=== PATIENT | male | born 1960 | race Caucasian/White ===

== ENCOUNTER → 2019-02-20 | Outpatient (CLI) | payer MEDICARE ==
[~2019-02-20] MED LIST: CRS350T PO; ETOD400T PO; HYDR-4226 PO; LEVO125T6 PO; LEVO300T2; NAPR-243 PO; TRM50T PO
--- NOTE | 2019-02-20 09:39 | Diagnostic Imaging Report ---
PROCEDURE: US abdomen complete. TECHNIQUE: Multiple real-time grayscale images were obtained over the abdomen in various projections. INDICATION: Right flank pain. The liver is enlarged at 19.5 cm. The liver shows increased echogenicity consistent with hepatic steatosis. No discrete liver mass is identified. Portal vein and hepatic veins are somewhat obscured. Gallbladder does contain a small amount of sludge but no stones are identified. No wall thickening or biliary duct dilatation is identified. Pancreas is obscured by bowel gas. The spleen is normal in size at 11.2 cm. Aorta and IVC were obscured by bowel gas. Kidneys are without calculi or hydronephrosis. Left kidney does contain at least 2 cysts, largest 3 cm in size. There is no ascites. IMPRESSION: 1. Limited study due to overlying bowel gas. There is hepatomegaly and hepatic steatosis. There may be minimal gallbladder sludge present as well but no cholelithiasis or acute cholecystitis is detected. 2. Left renal cysts. Dictated by: Dictated on workstation # [id number]
== END ==
LOC: RAD 08:03
PROVIDERS: ATTEND Family Medicine
DX: K76.0 Fatty (change of) liver, not elsewhere classified (principal); N28.1 Cyst of kidney, acquired
CPT/HCPCS: 76700

== ENCOUNTER → 2019-03-10 | Outpatient (CLI) | payer MEDICARE ==
[~2019-03-10] MED LIST changes: +CATHETER FLUSH 10 ML SYR IV PRN
--- NOTE | 2019-03-10 16:32 | Diagnostic Imaging Report ---
INDICATION: Right upper quadrant pain. EXAMINATION: Patient was administered 5.4 mCi technetium 99m Choletec intravenously and imaging over the abdomen was performed. At 45 minutes, the patient ingested 8 ounces of Ensure and a gallbladder ejection fraction was calculated. FINDINGS: There is homogeneous uptake of activity throughout the liver. There is prompt excretion of activity into the common duct with normal passage into the small bowel. Activity is seen within the gallbladder as well. Gallbladder ejection fraction is 28%. Normal values are 33% or greater. IMPRESSION: 1. Patent common bile duct and cystic duct. 2. Low gallbladder ejection fraction of 28%. Dictated on workstation # [id number]
== END ==
LOC: CARD 11:43
PROVIDERS: ATTEND Family Medicine
DX: R10.11 Right upper quadrant pain (principal)
CPT/HCPCS: 78227

== ENCOUNTER 2019-03-16 05:29 | Outpatient (CLI) | payer MEDICARE ==
[~2019-03-16] VITALS: Ht 185.4 cm; Wt 145.0 kg
[~2019-03-16 05:29] MED LIST changes: -CATHETER FLUSH 10 ML SYR IV PRN
[2019-03-16] MEDS ORDERED: LEVO125T6 PO (13:17)
[2019-03-17] MEDS ORDERED: HYDR-34 PO (10:27)
== END 2019-03-16 13:27 ==
LOC: PREOP 05:29
PROVIDERS: ATTEND Surgery
DX: Z01.818 Encounter for other preprocedural examination (principal)

== ENCOUNTER 2019-03-17 10:08 | Day surgery (SDC) | payer MEDICARE ==
[2019-03-17] VITALS (14 sets, daily range): BP systolic 98–169; BP diastolic 66–105
[~2019-03-17] VITALS: Ht 185.4 cm; Wt 145.0 kg
--- NOTE | 2019-03-17 10:25 | Progress Note-Pre Operative ---
Pre-Operative Progress Note H&P Reviewed The H&P was reviewed, patient examined and no changes noted. Date Seen by Provider: Mar 17, 2019 Time Seen by Provider: 10:00 Date H&P Reviewed: Mar 17, 2019 Time H&P Reviewed: 10:00 Pre-Operative Diagnosis: symptomatic biliary dyskinesia, hx polyps/screening BRITTNY LIZARRAGA MD Mar 17, 2019 10:25
[2019-03-17] MEDS ORDERED: HYDR-34 PO (10:27)
--- NOTE | 2019-03-17 10:28 | Discharge Inst-Surgical ---
D/C Lap Instructions-ZIA New, Converted, or Re-Newed RX: RX on Chart Follow Up Appt in 2 weeks Activity as tolerated No driving for 24 hours No driving while on pain medications Incentive Spirometry use every 2 hours while awake Regular Diet Symptoms to Report: Fever over 101 degree F, Nausea/Vomiting Infection Signs and Symptoms to report: Increased redness, Foul odor of wound, Increased drainage Bathing instructions: May shower Operative Area Clean/Dry; Keep incision clean/dry If any problems/questions: Contact your physician or go to Emergency Room BRITTNY LIZARRAGA MD Mar 17, 2019 10:28
[2019-03-17] MEDS ORDERED: morphine INJ 10 MG/ML 1ML (SYR OR VIAL) IVP PRN ×2 (10:30)
[2019-03-17] MEDS ORDERED: ONDANSETRON 4 MG/2 ML (SDV) Z0FRAN IVP PRN ×2 (10:30→13:45)
[2019-03-17] MEDS ORDERED: ACETAMINOPHEN 325 MG TABLET PO PRN (10:30)
[2019-03-17] MEDS ORDERED: oxyCODONE/APAP 5/325MG (PERCOCET 5) TABLET PO PRN (10:30)
[2019-03-17] MEDS ORDERED: ceFAZolin 2 GM/50 ML NS 50 ML ONE (10:44)
[2019-03-17] MEDS ORDERED: ceFAZolin 2 GM/50 ML NS 50 ML IV ONE (10:45)
[2019-03-17] MEDS ORDERED: BUP/EPI 0.5% 1:200,000 (SENSORCAINE) 30 ML VIAL ONE (10:49)
[2019-03-17] MEDS ORDERED: CATHETER FLUSH 10 ML SYR IV PRN (11:00)
[2019-03-17] MEDS: LACTATED RINGERS 1,000 ML IV PRN ×2 (11:13→12:09)
[2019-03-17] MEDS ORDERED: fentaNYL INJECTION 100 MCG/2 ML AMP IV ONE (11:15)
[2019-03-17] MEDS ORDERED: fentaNYL INJECTION 100 MCG/2 ML AMP ONE (11:15)
[2019-03-17] MEDS ORDERED: LIDOCAINE PF 2% 5 ML (XYLOCAINE) VIAL ONE (11:15)
[2019-03-17] MEDS ORDERED: ONDANSETRON 4 MG/2 ML (SDV) Z0FRAN ONE (11:15)
[2019-03-17] MEDS ORDERED: MIDAZOLAM 2 MG/2 ML (VERSED) VIAL IV ONE (11:15)
[2019-03-17] MEDS ORDERED: proPOfol 200 MG/20 ML (DIPRIVAN) VIAL IV ONE (11:15)
[2019-03-17] MEDS ORDERED: DEXAMETHASONE 10 MG/ML (DECADRON) 1 ML VIAL ONE (11:15)
[2019-03-17] MEDS ORDERED: ROCURONIUM 10 MG/ML 5 ML SYRINGE IV ONE (11:15)
[2019-03-17] MEDS ORDERED: NEOSTIGMINE 1 MG/ML 5 ML SYRINGE ONE (11:15)
[2019-03-17] MEDS ORDERED: SEVOFLURANE (ULTANE) 15 ML INHAL SOLN ONE (11:15)
[2019-03-17] MEDS ORDERED: GLYCOPYRROLATE 0.2 MG/ML (ROBINUL) 2 ML VIAL ONE (11:15)
[2019-03-17 11:29] LABS: BASOPHILS % (AUTO) 1 % (0-10); EOSINOPHILS # (AUTO) 0.1 10^3/uL (0.0-0.3); EOSINOPHILS % (AUTO) 2 % (0-10); HEMATOCRIT 45 % (40-54); HEMOGLOBIN 14.7 G/DL (13.3-17.7); LYMPHOCYTES # (AUTO) 1.4 X 10^3 (1.0-4.0); LYMPHOCYTES % (AUTO) 22 % (12-44); MEAN CORPUSCULAR HEMOGLOBIN 31 PG (25-34); MEAN CORPUSCULAR HGB CONC 33 G/DL (32-36); MEAN CORPUSCULAR VOLUME 95 FL (80-99); MEAN PLATELET VOLUME 9.7 FL (7.4-10.4); MONOCYTES % (AUTO) 15 % (0-12); NEUTROPHILS # (AUTO) 3.9 X 10^3 (1.8-7.8); NEUTROPHILS % (AUTO) 61 % (42-75); PLATELET COUNT 274 10^3/uL (130-400); RED CELL DISTRIBUTION WIDTH 13.4 % (10.0-14.5); WHITE BLOOD COUNT 6.4 10^3/uL (4.3-11.0)
[2019-03-17] MEDS ORDERED: HYDROmorphone 2 MG/ML VIAL (DILAUDID) ONE ×2 (11:45→13:41)
[2019-03-17] MEDS ORDERED: PHENYLEPHRINE 100 MCG/ML 10 ML (ANESTHESIA) SYR ONE (11:46)
[2019-03-17] MEDS ORDERED: DESFLURANE (SUPRANE) 15 ML INHAL SOLN ONE (11:59)
[2019-03-17] MEDS ORDERED: SUCCINYLCHOLINE INJ 100 MG/5 ML SYR ONE (12:01)
[2019-03-17] MEDS ORDERED: RT-ALBUTEROL SULF 2.5 MG/3 ML PRE-MIX VIAL ONE (13:27)
--- NOTE | 2019-03-17 13:38 | Progress Note-Post Operative ---
Post-Operative Progess Note Surgeon (s)/Workers Compensation Coordinator (s) Surgeon BRITTNY LIZARRAGA MD Workers Compensation Coordinator: wilma stinson [employer] Pre-Operative Diagnosis symptomatic biliary dyskinesia, hx polyps/screening Post-Operative Diagnosis chronic calculous cholecystitis, chronic stage 2 ext and int hemorrhoids, mild-moderate sigmoid diverticulosis. Procedure & Operative Findings Date of Procedure 03/17/19 Procedure Performed/Findings laparoscopic cholecystectomy. colonoscopy Anesthesia Type get Estimated Blood Loss Estimated blood loss (mL): minimal Specimens/Packing Specimens Removed gallbladder BRITTNY LIZARRAGA MD Mar 17, 2019 13:38
[2019-03-17] MEDS ORDERED: HYDROmorphone 2 MG/ML VIAL (DILAUDID) IV ONE (13:45)
[2019-03-17] MEDS ORDERED: LABETALOL HCL 20 MG/4 ML VIAL ONE (13:52)
[2019-03-17] MEDS ORDERED: LABETALOL HCL 20 MG/4 ML VIAL IV ONE (14:00)
[2019-03-17] MEDS ORDERED: RT-ALBUTEROL SULF 2.5 MG/3 ML PRE-MIX VIAL INH ONE (14:15)
--- NOTE | 2019-03-17 14:36 | Anesthesia-General Post-Op ---
General Patient Condition Mental Status/LOC: Same as Preop Cardiovascular: Satisfactory Nausea/Vomiting: Absent Respiratory: Satisfactory Pain: Controlled Complications: Absent Post Op Complications Complications None Follow Up Care/Instructions Patient Instructions None needed. Anesthesia/Patient Condition Patient Condition Patient is doing well, C/O some pain which is to be expected, stable vital signs, no apparent adverse anesthesia problems. He was initially hypertensive in PACU and was given labetalol. LALA HURD DO Mar 17, 2019 14:35
--- NOTE | 2019-03-17 20:13 | OPERATIVE REPORT ---
DATE OF SERVICE: 03/17/2019 ATTENDING PRIMARY PHYSICIAN: Dr. Seymour. PREOPERATIVE DIAGNOSIS: Symptomatic chronic acalculous cholecystitis. Screening colonoscopy. POSTOPERATIVE DIAGNOSIS: Chronic calculous cholecystitis, stage II external and internal hemorrhoids, mild to moderate sigmoid diverticulosis. PROCEDURE: Laparoscopic cholecystectomy, colonoscopy. SURGEON: Brittny Bolivar MD STOCK BROKER: Brenden Rojas APRN. ANESTHESIA: General endotracheal. ESTIMATED BLOOD LOSS: Minimal. FINDINGS: As above in the postop. DISPOSITION: The patient tolerated the procedure well. INDICATIONS: The patient is a 58-year-old male who has had issues with pain in the right upper abdominal quadrant as well as a bloating sensation. He states that this has been going relevant for some time; however, has increased in frequency as well as severity. He did undergo an ultrasound, which did not show any gallstones; however, he then underwent a HIDA scan, which did show a low ejection fraction consistent with biliary dyskinesia. He is also in need of a screening colonoscopy. He did have a colonoscopy approximately 10 years ago and states that he has had issues with hemorrhoids and underwent a hemorrhoidectomy at some point. DESCRIPTION OF PROCEDURE: The patient was brought to the operating room, laid supine on the table. After adequate IV pain and sedating medications and general endotracheal intubation, the abdomen was prepped and draped in standard surgical fashion. A 0.5% Marcaine with epinephrine was used to anesthetize the overlying skin in the left upper abdominal quadrant and a transverse skin incision made using a 15 blade. An 0 silk suture was applied to the medial aspect of the incision for traction and a Veress needle inserted with a low opening pressure of 0 mmHg and the abdomen was then insufflated to 15 mmHg pressure. The Veress needle removed and a 5 mm Xcel trocar placed followed by a 5 mm 45 degree angle laparoscope visualizing the peritoneal cavity. A 4-quadrant abdominal exploration was performed. There was a distended gallbladder as well as mild hepatomegaly. No other abnormalities detected. Under direct visualization, we then proceeded to place a supraumbilical 10 mm port after the skin and peritoneal lining were anesthetized using 0.5% Marcaine with epinephrine and a transverse skin incision made using a 15 blade. In a similar manner, a right upper abdominal quadrant 5 mm port was placed. The patient was then placed in reverse Trendelenburg position as well as plane right side up, left side down. The fundus of the gallbladder was then retracted anteriorly and superiorly. The hepatoduodenal ligament was then opened using blunt dissection as well as cautery on the hook instrument. The entire critical view of safety was identified including the triangle of Calot as well as the cystic duct and artery as the only two structures going into the gallbladder as well as the cystic plate behind the proximal gallbladder. A timeout was then taken and the cystic duct and artery were then clipped proximally and distally and cut with EndoShears. The gallbladder was then dissected off the liver bed using cautery on the hook instrument with visualization of good hemostasis as well as no leaking ducts of Luschka. The gallbladder was removed through the 10 mm port site using an EndoCatch bag. Backtable examination did reveal multiple small gallstones. The 10 mm port site fascia and peritoneum were then closed under direct visualization using a Dell-Janine device and 0 Vicryl suture. The abdomen was desufflated and remaining ports removed. All skin incisions were closed using 4-0 Monocryl running subcuticular sutures. Wounds were then cleaned and covered with Dermabond. Under the same anesthesia, we then proceeded with the colonoscopy portion of the procedure. The patient was placed in frog leg position and a digital rectal examination was performed, which revealed chronic recurrent stage II external and internal hemorrhoids, not actively edematous nor inflamed and no bleeding. Normal sphincter tone was felt and there were no palpable masses. Prostate gland was palpable and appeared normal. The endoscope was then intubated to the anus and rectum gently insufflated. The endoscope was then advanced to the valves of Crump of the rectum with no polyps or neoplasms identified. Through the sigmoid colon, mild to moderate sigmoid diverticulosis identified. There were no mucosal inflammatory changes to indicate any active diverticulitis. The endoscope was then advanced through the remainder of the descending, transverse and ascending colon to the cecum. These segments were normal. There were no polyps or any neoplasms identified throughout the colon or rectum. The endoscope was then slowly withdrawn with taking a second look and suctioning of residual air with no additional findings. The patient tolerated the procedure well. We will recommend a high fiber diet with at least 30 grams of fiber per day as well as significant amounts of water to promote soft stools on a daily basis. We will also start IV normal pain medication as well as a clear liquid diet. Once he is tolerating clears, has good pain control with oral pain medications, ambulating well, we will discharge him home. His only restriction is no heavy lifting or exertion for the next two weeks. Job ID: [id number] DocumentID: [id number] Dictated Date: 03/17/2019 14:41:29 Grounds Cleaner Date: 03/17/2019 20:13:08 Dictated By: BRITTNY BOLIVAR MD
== END 2019-03-17 17:05 | disposition home or self-care (01) ==
LOC: SDC 10:08
PROVIDERS: ATTEND Surgery
DX: K80.10 Calculus of gallbladder with chronic cholecystitis without obstruction (principal); Z12.11 Encounter for screening for malignant neoplasm of colon; K57.30 Diverticulosis of large intestine without perforation or abscess without bleeding; K64.1 Second degree hemorrhoids; Z87.19 Personal history of other diseases of the digestive system; G20 Parkinson's disease; C73 Malignant neoplasm of thyroid gland; Z79.899 Other long term (current) drug therapy; Z87.891 Personal history of nicotine dependence
CPT/HCPCS: 47562; G0105; 36415; 85025; 87081

== ENCOUNTER → 2021-08-19 | Outpatient (CLI) | payer MEDICARE ==
[~2021-08-19] MED LIST changes: -ETOD400T PO; +ETOD400T3 PO; +HYDR-34 PO
== END ==
LOC: LABNPT 06:14
PROVIDERS: ATTEND Neurological Surgery
DX: Z01.812 Encounter for preprocedural laboratory examination (principal); Z20.822 Contact with and (suspected) exposure to COVID-19
CPT/HCPCS: 87635